=== PATIENT | female | born 1975 | race Two or more races ===

== ENCOUNTER 2021-07-02 17:28 | Emergency (ER) | payer SELFPAY ==
[2021-07-02 19:45] VITALS: BP 113/73
== END 2021-07-02 19:45 | disposition left against medical advice (07) ==
LOC: ER 17:28
DX: R11.2 Nausea with vomiting, unspecified (principal); R19.7 Diarrhea, unspecified; Z53.21 Procedure and treatment not carried out due to patient leaving prior to being seen by health care provider